=== PATIENT | female | born 1955 | race Caucasian/White ===

== ENCOUNTER 2018-07-04 14:30 | Outpatient (CLI) | payer OTHER | END 2018-07-04 14:31 | disposition critical access hospital (66) | LOC: EMS 14:30 | PROVIDERS: ATTEND Surgery | DX: S99.911A Unspecified injury of right ankle, initial encounter (principal); W01.0XXA Fall on same level from slipping, tripping and stumbling without subsequent striking against object, initial encounter; Y93.01 Activity, walking, marching and hiking; Y92.833 Campsite as the place of occurrence of the external cause | CPT/HCPCS: A0425; A0427 ==

== ENCOUNTER 2018-07-04 14:40 | Emergency (ER) | payer OTHER ==
[2018-07-04] MEDS ORDERED: fentaNYL 100 MCG/2 ML VIAL IVP STA (15:22)
--- NOTE | 2018-07-04 15:25 | ED Physician Documentation ---
PD HPI LOWER EXT INJURY - Stated complaint Stated Complaint: ANKLE FX - Chief complaint Chief Complaint: Ext Problem - History obtained from History obtained from: Patient - History of Present Illness PD HPI LOW EXT INJURY LOCATION: Right, Ankle Type of injury: Fall, Twist Where injury occurred: Home Timing - onset: How many hours ago (13) Timing - details: Abrupt onset Pain level max: 4 Pain level now: 4 Improved by: Rest, Immobilization Worsened by: Moving Associated symptoms: Swelling. No: Weakness, Numbness, Tingling Contributing factors: Anticoagulated (ASA 81 MG). No: Prior ortho surgery, Work related Similar symptoms before: Has not had sx before Recently seen: Not recently seen - Additional information Additional information: 63-year-old female with history of COPD, GERD, atrial fib on baby aspirin daily here with complaint of right ankle pain after trip and fall at 2:00 this morning. Patient stated lives in a trailer and had to go to an outdoor bathroom in the dark. Patient was brought in by the EMS with right leg restraint and was given fentanyl. Review of Systems Ten Systems: 10 systems reviewed and negative Constitutional: denies: Fever, Myalgias Cardiac: denies: Chest pain / pressure Respiratory: denies: Dyspnea GI: denies: Abdominal Pain Musculoskeletal: reports: Extremity pain, Extremity swelling. 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 : None HEENT: None Psych: Depression, Schizophrenia Musculoskeletal: Osteoarthritis, Chronic back pain Derm: None - Past Surgical History Past Surgical History: Yes Ortho: Knee replacement /[employer]OR: Hysterectomy - Present Medications Home Medications: Ambulatory Orders Medication Instructions Recorded Confirmed Hydrocodone/Acetaminophen 1 - 2 each PO Q6H PRN #14 tablet 07/04/18 [Hydrocodon-Acetaminophen 5-325] Ibuprofen [Motrin] 800 mg PO Q8H PRN #30 tablet 07/04/18 - Allergies Allergies/Adverse Reactions: Allergies Allergy/AdvReac Type Severity Reaction Status Date / Time No Known Drug Allergies Allergy Verified 07/04/18 14:49 - Social History Does the pt smoke?: No Smoking Status: Never smoker Does the pt drink ETOH?: Yes ETOH Use: Beer, Other Does the pt have substance abuse?: No - Immunizations Immunizations are current?: Yes - POLST Patient has POLST: No PD ED PE NORMAL - Vitals Vital signs reviewed: Yes - General General: Alert and oriented X 3, No acute distress, Well developed/nourished - HEENT HEENT: Atraumatic, EOMI, Moist mucous membranes, Pharynx benign - Neck Neck: Supple, no meningeal sign - Cardiac Cardiac: RRR, No murmur - Respiratory Respiratory: No respiratory distress, Clear bilaterally - Abdomen Abdomen: Normal bowel sounds, Soft, Non tender, Non distended - Back Back: No CVA TTP, No spinal TTP - Derm Derm: Normal color, Warm and dry - Extremities Extremities: No edema, No calf tenderness / cord, Other (Right ankle with deformity on the medial malleolar area With slight skin tenting. Pulses DP and) - Neuro Neuro: Alert and oriented X 3, Normal speech - Psych Psych: Normal mood, Normal affect Results - Vitals Vitals: Vital Signs - 24 hr 07/04/18 07/04/18 07/04/18 14:42 16:32 16:39 Temperature 36.0 C L Heart Rate 95 90 91 Respiratory 16 19 19 Rate Blood Pressure 114/72 121/83 H 121/83 H O2 Saturation 92 94 96 07/04/18 07/04/18 07/04/18 16:47 16:52 17:00 Temperature Heart Rate 92 91 90 Respiratory 21 20 17 Rate Blood Pressure 127/83 H 126/85 H O2 Saturation 99 96 07/04/18 07/04/18 07/04/18 17:10 17:23 18:40 Temperature Heart Rate 89 91 92 Respiratory 16 16 12 Rate Blood Pressure 123/83 H 122/78 138/81 H O2 Saturation 96 96 93 07/04/18 07/04/18 07/04/18 18:46 18:52 19:16 Temperature Heart Rate 90 87 88 Respiratory 14 14 18 Rate Blood Pressure 114/74 121/78 126/79 O2 Saturation 94 95 96 Oxygen O2 Source Nasal cannula Procedures - Reduction Body part reduced: Right, Ankle Fracture or dislocation: Fracture dislocation Anesthesia: Propofol Reduction aftercare: NV intact, Xray confirms reduction (X-ray confirms reduction however the alignment is not 100% aligned. Dr. Briones informed and stated he is coming to the ER to try another reduction.), Alignment improved, Splint applied, Crutches, Patient tolerated well, Other (Close reduction of right ankle: Held patient's great toe and aligned and reduced the ankle without any difficulty.Pulses DP and PP +2. Capillary refill less than 2 seconds. Patient is able to wiggle toe after splint was in place at 1659.) PD MEDICAL DECISION MAKING - ED course Complexity details: reviewed results, re-evaluated patient, considered differential (Trimalleolar fracture, bimalleolar fracture, ankle dislocation,), d/w patient, d/w wedding consultant ED course: 1615 patient informed of x-ray results and need for close reduction with conscious sedation.Explained to patient risk and benefits of moderate sedation. Patient stated she never had any problem with anesthesia. Patient agreed. Patient requesting for more pain medication. She did receive fentanyl which did not help this time. We will give her some Dilaudid. 1621 Case discussed with orthopedic area operations director Dr. Trivedi. Stated he agreed with close reduction and splint. Patient will be seen at the clinic this week and plan on surgery next week. 1636 patient inform of recommendation of orthopedic surgeon. She agreed with plans. Explained to patient indication of closed reduction and moderate sedation including risk and benefits. Reevaluated patient lungs are clear. Respiratory easy and regular.1659 patient tolerated close reduction with propofol. Posterior splint with stirrups intact. Right leg neurovascularly intact. Will recheck x-ray.[address] Briones about x-ray of the postreduction. It is improved alignment but not fully aligned so he is going to come to the emergency room to reduce the ankle. 1818 Dr. Briones is seen the ER. Informed the patient about another attempt to do a closed reduction of her right ankle and patient agreed. Patient not in acute distress and respiration easy. Lungs clear to auscultation. RN and RT at the bedside. Propofol 50 mg was given this time. And Dr. Briones did closed reduction. There is lesser tenting of the medial malleolar area and the right leg is neurovascularly intact. Splint in place. X-rays being taken now. Patient awake and alert. Patient states she is planning to go back to [facility] in 2 days and will follow up with the orthopedic doctor there. MUCKER OPERATOR informed to give the patient copy of her x-rays with the CD.Postreduction x-ray was read by Dr. Briones and he is satisfied with the results. There is much improvement in the alignment of the ankle.1920 patient awake alert and oriented. Patient wants to go home in the [facility] but was informed that somebody needs to pick her up. So she will try to call somebody. Patient awaiting CD of her x-rays. Right leg: Able to wiggle her toes, capillary refill less than 2 seconds, sensation intact, color normal. Posterior splint with stirrups intact. Departure - Departure Disposition: 01 Home, Self Care Clinical Impression: Trimalleolar fracture of ankle, closed Qualifiers: Encounter type: initial encounter Laterality: right Qualified Code(s): S82.851A - Displaced trimalleolar fracture of right lower leg, initial encounter for closed fracture Condition: Stable Instructions: ED Fx Ankle General Follow-Up: Arvind Sanchez MD [Provider Admit Priv/Credential] - Prescriptions: Hydrocodone/Acetaminophen [Hydrocodon-Acetaminophen 5-325] 1 - 2 each PO Q6H PRN #14 tablet PRN Reason: pain Ibuprofen [Motrin] 800 mg PO Q8H PRN #30 tablet PRN Reason: PAIN &/OR FEVER Comments: You just had sedation with a strong medication called propofol in order to reduce your broken ankle. Maintain safety. No alcohol no driving. Your ankle is in place with a splint. Make sure you keep this on at all times. Do not put any weight on your right leg. You can use walker or cane for walking. But no weight on the right leg. Elevate your right leg. Call the orthopedic doctor this week for reevaluation and plan of surgery next week. If worse return to the emergency room.If you are having your orthopedic doctor from [facility] evaluate you please bring the CD copy of your x-rays.Your prescribed pain medication Motrin and hydrocodone. Make sure you take the Motrin with food. When taking hydrocodone maintain safety. No alcohol no driving. To prevent constipation from narcotic, drink lots of water, eat high-fiber foods, take [id number] stool softener.
--- NOTE | 2018-07-04 16:14 | XRAY Report ---
Reason: tripped and fell, pain, deformity Procedure Date: 07/04/2018 Accession Number: [id number] / [id number] Procedure: XR - Ankle 3 View RT CPT Code: FULL RESULT: EXAM: RIGHT ANKLE RADIOGRAPHY EXAM DATE: 07/04/2018 03:24 PM. CLINICAL HISTORY: Tripped and fell, pain, deformity. COMPARISON: None. TECHNIQUE: 3 views. FINDINGS: Bones: Grossly displaced trimalleolar fracture involving the distal tibia and fibula. Joints: See above. Soft Tissues: Expected soft tissue swelling. IMPRESSION: Trimalleolar ankle fracture RADIA CRITICAL RESULT: The findings were discussed with Dr. Hebert on 07/04/2018 at 4:12 PM.
[2018-07-04] MEDS ORDERED: HYDROmorphone 1 MG/ML CARPUJECT IVP STA ×2 (16:23→20:27)
[2018-07-04] MEDS ORDERED: PROPOFOL 200 MG/20 ML VIAL IVP STA ×2 (16:27→18:18)
--- NOTE | 2018-07-04 17:34 | XRAY Report ---
Reason: post reduction Procedure Date: 07/04/2018 Accession Number: [id number] / [id number] Procedure: XR - Ankle 3 View RT CPT Code: FULL RESULT: EXAM: RIGHT ANKLE RADIOGRAPHY EXAM DATE: 07/04/2018 05:16 PM. CLINICAL HISTORY: Post reduction. COMPARISON: ANKLE 3 VIEW RT 07/04/2018 3:24 PM. TECHNIQUE: 3 views. FINDINGS: Bones: Interval reduction of the trimalleolar fractures with markedly improved alignment of such. Joints: Complete interval reduction of the tibiotalar dislocation in the sagittal plane. Decreased offset of the tibiotalar dislocation in the coronal plane, now 75% medial offset distal tibia relative to the talar dome. Soft Tissues: Extensive edema. Interval casting. IMPRESSION: Markedly improved alignment trimalleolar fracture dislocation. RADIA
--- NOTE | 2018-07-04 18:55 | PROVIDER PROGRESS NOTE ---
Subjective - Prog Note Date Prog Note Date: 07/04/18 Prog Note Time: 18:52 - Subjective Pt reports feeling: No change (Less pain after right ankle fracture from [place] today. No distal weakness/numbness.) Objective - Vital Signs/Intake & Output Vital Signs: Vital Signs x48h Temp Pulse Resp BP Pulse Ox 07/04/18 18:46 90 14 114/74 94 07/04/18 18:40 92 12 138/81 H 93 07/04/18 17:23 91 16 122/78 96 07/04/18 17:10 89 16 123/83 H 96 07/04/18 17:00 90 17 126/85 H 96 07/04/18 16:52 91 20 127/83 H 99 07/04/18 16:47 92 21 07/04/18 16:39 91 19 121/83 H 96 07/04/18 16:32 90 19 121/83 H 94 07/04/18 14:42 36.0 C L 95 16 114/72 92 - Diagnostic Imaging Diagnostic Imaging Comments: Displaced right trimalleolar ankle fracture - Other Results/Comments Other Results/Comments: EXAM: Skin is tented anteriomedially. Moves toes well. Sensation intact. Good cap filling. Assessment/Plan - Problem List (1) Trimalleolar fracture of ankle, closed Impression: PLAN: Under conscious sedation, closed reduction of right ankle fracture done and ankle resplinted. Improved position; no longer with skin tenting. Keep ankle elevated; analgesics; walker - non weight bearing on right. Follow up in 5-7 days either here locally or back home in . Will need ORIF of ankle fracture when swelling is down. Qualifiers: Encounter type: initial encounter Laterality: right Qualified Code(s): S82.851A - Displaced trimalleolar fracture of right lower leg, initial encounter for closed fracture
--- NOTE | 2018-07-04 19:22 | XRAY Report ---
Reason: post reduction Procedure Date: 07/04/2018 Accession Number: [id number] / [id number] Procedure: XR - Ankle 2 View RT CPT Code: FULL RESULT: EXAM: RIGHT ANKLE RADIOGRAPHY EXAM DATE: 07/04/2018 06:57 PM. CLINICAL HISTORY: Post reduction. COMPARISON: ANKLE 3 VIEW RT 07/04/2018 5:03 PM. TECHNIQUE: 2 views. FINDINGS: Bones: Interval improved alignment of trimalleolar fracture fragments with residual moderate displacement. Joints: Residual, approximately 1.1 cm lateral talus subluxation. Soft Tissues: Normal. No soft tissue swelling. IMPRESSION: 1. Improved bony alignment with moderate post reduction trimalleolar fracture fragment displacement. 2. Mild residual lateral ankle joint subluxation. RADIA
--- NOTE | 2018-07-04 20:35 | CONSULTATION NOTE ---
DATE OF SERVICE: 07/04/2018 Physician: Arvind Sanchez MD ORTHOPEDIC EMERGENCY ROOM NOTE REFERRING PHYSICIAN: Dr. Asmita Hebert of the emergency room department. CHIEF COMPLAINT: "My right ankle hurts." HISTORY OF PRESENT ILLNESS: Patient is a 63-year-old woman, visiting [facility] with her daughter from [facility], who injured her right ankle on the evening of her visit to the emergency room. She and her daughter are living in the mobile home here at [facility] for the next several days, visiting. She apparently was walking down a rather steep incl[place] when she twisted her ankle. She noted immediate pain and deformity in her right ankle region. She was unable to stand or weight bear after this accident. She was taken by ambulance to the emergency room here at [facility] where x-rays showed a displaced trimalleolar right ankle fracture. The fracture was closed. No neurovascular compromise associated. No other associated injuries. PHYSICAL EXAMINATION: On exam, the patient is having some tenting of the skin anteromedially just proximal to the ankle joint due to the displacement of her ankle fracture. The patient is able to move her toes satisfactory. Sensation intact throughout. Good capillary filling is noted of the digits. First reduction of the ankle fracture and splint still showed lateral displacement of her ankle fracture, though there was an improvement on the lateral projection. Again, under conscious sedation another attempt at reduction of her ankle fracture was performed closed. Holding the ankle in a clinically improved position, we then applied a posterior splint with stirrups holding the ankle in the reduced position. X-rays taken after the second reduction shows an improved position of the fracture. There did not appear to be any other recurrence of the skin tenting after this reduction. ASSESSMENT: Closed displaced right trimalleolar ankle fracture - in an improved to reduced position and currently splinted. PLAN: The patient will keep her leg elevated and will continue with the splint and nonweightbearing over the next 5-10 days. She is unsure whether she will plan on returning back to [facility] on 07/06/2017 as she had planned originally, or whether she plans on staying here to have her operative procedure done. I would recommend that she be evaluated by the orthopedist either here later this week or up in [facility] by early next week for reevaluation and for scheduling for probable open reduction internal fixation of her right ankle fracture. TD: 07/04/2018 19:01 SABINO
--- NOTE | 2018-07-04 20:43 | ED Physician Documentation ---
ED Addendum - Addendum Addendum: 07/04/18 20:41 assumed care 8 PM 07/04/19 63 [place] fell and had a trimall fx has had conscious sedation and reduction ir was felt unsafe to dc pt by cab to a campground in the dark on crutches after conscious sedation she has no one to pick her up and take of her tonight but will be able to get assistance tomorrow not an admission dx so plan os to board in ED overnight until daylight and a friend or family can come get her has pain meds written for, has dc instructions ready I went to see pt she is wake and alert hungry as she was NPO for sedation waiting for nruse to bring her pain meds MSV intact to foot she is comfortable with plan to stay the night and thinks she can contact a friend from [place] to come get her tomorrow no acute overnight events turned over to AM doc Dr Barnett at 7 AM 07/05/18 07/04/18 21:06 07/05/18 07:46
[2018-07-04] MEDS: IBUPROFEN 800 MG TABLET PO SCH (21:10)
[2018-07-05] MEDS: HYDROcod/ACETAM 5/325 MG TABLET PO SCH ×2 (02:16→09:54)
[2018-07-05 07:10] VITALS: BP 139/81
[2018-07-05] MEDS: IBUPROFEN 800 MG TABLET PO SCH (11:25)
--- NOTE | 2018-07-07 14:21 | ED Physician Documentation ---
ED Addendum - Addendum Addendum: 07/07/18 14:15 ADDENDUM July 04, 2018 1659:Conscious sedation for reduction of right ankle time spent - 30 minutes 1818:Conscious sedation time for closed reduction assist w/ ortho - 30 minutes
== END 2018-07-05 12:12 | disposition home or self-care (01) ==
LOC: ED 14:40
DX: S82.851A Displaced trimalleolar fracture of right lower leg, initial encounter for closed fracture (principal); W01.0XXA Fall on same level from slipping, tripping and stumbling without subsequent striking against object, initial encounter; Y93.01 Activity, walking, marching and hiking; Y92.833 Campsite as the place of occurrence of the external cause; Z86.79 Personal history of other diseases of the circulatory system; Z79.82 Long term (current) use of aspirin
CPT/HCPCS: 27818; 73600; 73610; 94770; 96374; 96375; 96376; 99156; 99157; 99284; 99285; A9270; J1170